=== PATIENT | male | born 1940 | race Caucasian/White ===

== ENCOUNTER 2017-07-19 14:29 | Emergency (ER) | payer MEDICARE, MEDICAID ==
[2017-07-19 15:20] VITALS: BP 136/74
--- NOTE | 2017-07-19 15:40 | UC ---
Eye Complaint HPI - HPI Summary HPI Summary: area below right eye red tender swollen for 3 days---no pain with movement of eye no visual changes - History of Current Complaint Chief Complaint: UCSkin Stated Complaint: RIGHT EYE COMPLAINT Time Seen by Provider: 07/19/17 15:26 Hx Obtained From: Patient Onset/Duration: Sudden Onset, Lasting Days - 3, Still Present Timing: Constant Severity Initially: Mild Severity Currently: Mild Location of Injury: Eye Lid (lower) Aggravating Factor(s): Nothing Alleviating Factor(s): Nothing Associated Signs And Symptoms: Positive: Negative - Allergies/Home Medications Allergies/Adverse Reactions: Allergies Allergy/AdvReac Type Severity Reaction Status Date / Time No Known Allergies Allergy Verified 07/19/17 15:20 Home Medications: Home Medications High Cholesterol Med 07/19/17 [History] busPIRone TAB* [Buspar TAB *] 07/19/17 [History] PMH/Surg Hx/FS Hx/Imm Hx Previously Healthy: No Endocrine History: Dyslipidemia Psychological History: Anxiety - Surgical History Surgical History: Yes Surgery Procedure, Year, and Place: HERNIA REPAIR - Family History Known Family History: Positive: None - Social History Occupation: Retired Lives: With Family Alcohol Use: None Substance Use Type: None Smoking Status (MU): Former Smoker Have You Smoked in the Last Year: No - Immunization History Most Recent Influenza Vaccination: CURRENT Review of Systems Constitutional: Negative Skin: Negative Eyes: Other - erythema swolleing lower right eye lid ENT: Negative Respiratory: Negative Cardiovascular: Negative Gastrointestinal: Negative Genitourinary: Negative Motor: Negative Neurovascular: Negative Musculoskeletal: Negative Neurological: Negative Psychological: Negative Is Patient Immunocompromised?: No All Other Systems Reviewed And Are Negative: Yes Physical Exam Triage Information Reviewed: Yes Appearance: Well-Appearing, No Pain Distress, Well-Nourished Vital Signs: Initial Vital Signs Temp 99.3 F 07/19/17 15:14 Pulse 72 07/19/17 15:14 Resp 16 07/19/17 15:14 BP 136/74 07/19/17 15:14 Pulse Ox 96 07/19/17 15:14 Vital Signs Reviewed: Yes Eye Exam: Normal Eyes: Positive: Conjunctiva Clear, Other: - EOMI and with out discomfort ENT Exam: Normal ENT: Positive: Normal ENT inspection, Hearing grossly normal, Pharynx normal, TMs normal. Negative: Nasal congestion, Nasal drainage, Tonsillar swelling, Tonsillar exudate, Trismus Dental Exam: Normal Neck exam: Normal Neck: Positive: Supple, Nontender, No Lymphadenopathy Respiratory Exam: Normal Respiratory: Positive: Chest non-tender, Lungs clear, Normal breath sounds, No respiratory distress Cardiovascular Exam: Normal Cardiovascular: Positive: RRR, No Murmur, Pulses Normal, Brisk Capillary Refill Musculoskeletal Exam: Normal Musculoskeletal: Positive: Strength Intact, ROM Intact, No Edema Neurological Exam: Normal Neurological: Positive: Alert, Muscle Tone Normal Psychological Exam: Normal Skin Exam: Other Skin: Positive: Other - erythema, swelling below right eye Eye Complaint Course/Dx - Course Course Of Treatment: Bactrim, erythromycin ointment, warm compress follow with pcp or report to ed for worsening sx - Differential Dx/Diagnosis Provider Diagnoses: cellulitis right lower lid (without evidence of orbital cellulitis) Discharge - Discharge Plan Condition: Stable Disposition: HOME Prescriptions: Erythromycin OPTH OINT* [Erythromycin 0.5% OPTH OINT*] 1 applic RIGHT EYE TID # 1 ophth.oint Sulfamethox/Trimethoprim DS* [Bactrim DS 800/160 TAB*] 1 tab PO BID #14 tab Patient Education Materials: Cellulitis (ED), Warm Compress or Soak (ED) Print Language: SPANISH Referrals: Non Staff,Doctor [Medical Doctor] - Additional Instructions: Follow with Dr. Stoner this week for a recheck. Go to ED for worsening symptoms
== END 2017-07-19 15:49 | disposition home or self-care (01) ==
LOC: UCCORT 14:29
DX: H00.032 Abscess of right lower eyelid (principal); E78.5 Hyperlipidemia, unspecified; F41.9 Anxiety disorder, unspecified; Z87.891 Personal history of nicotine dependence
CPT/HCPCS: 99202; G0463